=== PATIENT | female | born 1990 | race Two or more races ===

== ENCOUNTER → 2024-07-08 | Outpatient (CLI) | payer MEDICAID, SELFPAY ==
--- NOTE | 2024-07-08 08:45 | XR_ITS ---
Examination: Breast ultrasound, unilateral, right complete Date and time of exam: July 08, 2024 0918 hours INDICATIONS: Palpable lump in the right axilla with right axillary breast pain 20 years Technique: Real-time damon scale ultrasonographic imaging performed right breast including all 4 quadrants as well as nipple retroareolar and axillary region. Findings: No cystic or solid breast mass Right axillary mass with abnormal internal architecture, measuring 18 x 19 x 18 mm IMPRESSION: BI-RADS Category 4: Suspicious for malignancy Suspicious axillary mass, biopsy is needed to exclude carcinoma, this mass is amenable to ultrasound-guided axillary biopsy for diagnosis
--- NOTE | 2024-07-08 09:15 | XR_ITS ---
Examination: Diagnostic digital mammography, unilateral, right Computer aided detection 3-D breast Tomosynthesis, unilateral Date and time of exam: July 08, 2024 at 0931 hours INDICATIONS: Right breast discharge 6 months, lump in the right breast 15 years, Technique: Nonmagnified MLO, CC views of the right breast have been obtained, reconstructed from 3-D Tomosynthesis images. R2 computer aided detection program utilized for evaluation of suspicious masses and/or abnormal calcifications. 3-D Tomosynthesis images obtained. Findings: Scattered areas of fibroglandular density Please see the right breast sonogram today indicating axillary mass Suspicious for architectural distortion upper right breast MLO view, 6.6 cm from the nipple Impression: BI-RADS category 0: Incomplete: Need additional imaging evaluation Please see the right breast sonogram report today indicating suspicious axillary mass Recommend follow-up spot tomographic views upper outer quadrant right breast to exclude early architectural distortion upper right breast on the MLO view
== END | disposition home or self-care (01) ==
PROVIDERS: PCP Physician Assistant; Referring Provider Physician Assistant; Visit Provider Physician Assistant
DX: R92.8 Other abnormal and inconclusive findings on diagnostic imaging of breast (principal); N63.31 Unspecified lump in axillary tail of the right breast
CPT/HCPCS: 76641; 77061; 77065; G0279

== ENCOUNTER → 2024-09-23 | Outpatient (CLI) | payer MEDICAID, SELFPAY ==
[2024-09-20 10:57] LABS: Basophils % (Auto) 0 % (0-2.5); Eosinophils # (Auto) 0.2 Thou/mm3 (0.0-0.5); Eosinophils % (Auto) 2 % (0-10); Immature Granulocytes % (Auto) 0 % (0-0); Immature Granulocytes Auto 0.01 Thou/mm3 (0.00-0.00); Lymphocytes # (Auto) 2.7 Thou/mm3 (1.0-4.8); Lymphocytes % (Auto) 29 % (10-50); Mean Corpuscular HGB Conc 28.1 g/dl (31.0-37.0); Mean Corpuscular Volume 61 fL (80-100); Monocytes # (Auto) 0.6 Thou/mm3 (0.0-0.8); Monocytes % (Auto) 7 % (0-12); Neutrophils # (Auto) 5.7 Thou/mm3 (1.8-7.7); Neutrophils % (Auto) 62 % (37-80); Nucleated Red Blood Cell % 0 /100 WBC (0); Platelet Count 461 Thou/mm3 (140-440); RDW Standard Deviation 40.8 fL (36.4-46.3); Red Blood Count 5.12 Miln/mm3 (4.00-5.20); White Blood Count 9.1 Thou/mm3 (3.6-11.0)
[2024-09-20 11:03] LABS: Partial Thromboplastin Time 28.8 Seconds (22.0-36.0); Prothrombin Time 11.1 Seconds (9.0-12.2)
[2024-09-20 11:04] LABS: Hemoglobin 8.7 g/dL (12.0-16.0)
[2024-09-20 11:05] LABS: HCG,Qualitative Serum Negative
--- NOTE | 2024-09-23 08:30 | XR_ITS ---
Examinations: Ultrasound-guided percutaneous right axillary biopsy Right axillary sonography limited Exam date and time: September 23, 2024 0913 hours INDICATIONS: Abnormal right axillary mass 18 x 19 x 18 mm on right axillary sonogram July 08, 2024. Informed consent provided. Technique: A timeout was completed verifying correct patient, procedure, site, positioning, and special equipment if applicable Informed consent provided. The patient was placed in a supine position for the axillary mass biopsy. Sonographic images of the axilla were performed for localization of the suspicious nodule The patient's breast was prepped and draped in sterile fashion. Maximum sterile barrier technique, hand hygiene, ultrasound sterile technique 1% lidocaine utilized for local anesthesia Utilizing ultrasonographic guidance, 8 core biopsies were obtained of the suspicious nodule utilizing an 18-gauge BioPince needle. The specimens appears satisfactory. The patient tolerated the procedure well and there were no complications. Impression: Successful ultrasound-guided percutaneous biopsy right axillary mass
== END | disposition home or self-care (01) ==
LOC: SIRX 08:19
PROVIDERS: Radiology Diagnostic Radiology; PCP Nurse Practitioner; Referring Provider Nurse Practitioner; Visit Provider Nurse Practitioner
DX: N63.31 Unspecified lump in axillary tail of the right breast (principal); Z01.812 Encounter for preprocedural laboratory examination
CPT/HCPCS: 19083; 36415; 84703; 85025; 85610; 85730

== ENCOUNTER 2024-12-30 05:50 | Day surgery (SDC) | payer MEDICAID, SELFPAY ==
--- NOTE | 2024-12-27 07:00 | EKG_ITS ---
[facility] Test Date: 2024-12-27 Pat Name: BLOSSOM BECK Department: Room: - Gender: Female Tool Designer: JAYJAY : 1990 Requested By: Mario Doyle Order Number: [id number] Reading MD: Mario Doyle Measurements Intervals [place] Rate: 84 P: 52 NH: 165 QRS: -15 QRSD: 77 T: 19 QT: 352 QTc: 416 Interpretive Statements SINUS RHYTHM POSSIBLE ANTERIOR MYOCARDIAL INFARCTION , PROBABLY OLD [30 ms Q WAVE IN V3/V4, OR R < 0.2 mV IN V4] No previous ECG available for comparison /store/S0/[id number]/ecg/[id number].pdf
[2024-12-27 07:33] VITALS: BMI 35.4
[2024-12-27 08:08] LABS: Collection Type, Urine Clean Catch
[2024-12-27 08:54] LABS: Basophils # (Auto) 0.1 Thou/mm3 (0.0-0.2); Basophils % (Auto) 1 % (0-2.5); Eosinophils # (Auto) 0.2 Thou/mm3 (0.0-0.5); Eosinophils % (Auto) 2 % (0-10); Hematocrit 31.4 % (36.0-46.0); Immature Granulocytes Auto 0.03 Thou/mm3 (0.00-0.00); Lymphocytes # (Auto) 2.8 Thou/mm3 (1.0-4.8); Lymphocytes % (Auto) 27 % (10-50); Mean Corpuscular HGB Conc 27.1 g/dl (31.0-37.0); Mean Corpuscular Hemoglobin 16.6 pg (25.0-35.0); Mean Corpuscular Volume 61 fL (80-100); Monocytes # (Auto) 0.7 Thou/mm3 (0.0-0.8); Monocytes % (Auto) 7 % (0-12); Neutrophils # (Auto) 6.5 Thou/mm3 (1.8-7.7); Neutrophils % (Auto) 63 % (37-80); Nucleated Red Blood Cell # 0.00 Thou/mm3 (0.00-0.00); Nucleated Red Blood Cell % 0 /100 WBC (0); Platelet Count 415 Thou/mm3 (140-440); RDW Standard Deviation 43.3 fL (36.4-46.3); Red Blood Count 5.12 Miln/mm3 (4.00-5.20); White Blood Count 10.3 Thou/mm3 (3.6-11.0)
[2024-12-27 09:07] LABS: Bacteria,Urine Rare; Bilirubin,Urine Negative (Negative); Blood,Urine Negative (Negative); Clarity,Urine Clear (Clear/Hazy); Color,Urine Yellow (Lt Yel-Yel); Glucose, Urine Negative (Negative); Ketones,Urine Negative (Negative); Leukocyte Esterase,Urine Negative (Negative); Nitrite,Urine Negative (Negative); PH,Urine 6.0 (5.0-7.0); Protein,Urine Trace (Neg - Trace); RBC,Urine 3 /hpf (0-3); Specific Gravity,Urine 1.030 (1.001-1.035); Squamous Epithelial Cell,Urine 15 /hpf (0-5); Urobilinogen,Urine Negative mg/dL (0.0-1.0); WBC,Urine 2 /hpf (0-5)
[2024-12-27 09:15] LABS: Partial Thromboplastin Time 26.5 Seconds (22.0-36.0)
[2024-12-27 09:23] LABS: Alanine Aminotransferase 22 U/L (10-49); Albumin, Serum 4.5 gm/dL (3.5-5.0); Albumin/Globulin Ratio 1.5 (1.2-2.2); Alkaline Phosphatase 72 U/L (46-116); Anion Gap 9 (7-16); Aspartate Amino Transferase 22 U/L (0-34); BUN/Creatinine Ratio 15 Ratio (12-20); Bilirubin,Total 0.5 mg/dL (0.3-1.2); Blood Urea Nitrogen 12 mg/dL (9-23); Calcium 9.1 mg/dL (8.3-10.6); Calcium (Corrected) 9.1 mg/dL (8.5-10.1); Carbon Dioxide 26.2 mMol/L (20.0-31.0); Chloride 104 mMol/L (98-107); Creatinine (Component) 0.8 mg/dL (0.6-1.3); Estimated Creatinine Clearance 111.7 mL/min (>60); Globulin 3.0 gm/dL (2.3-3.5); Glucose 114 mg/dL (74-106); Osmolality,Calculated 278 (275-295); Potassium 4.2 mMol/L (3.4-5.1); Sodium 139 mMol/L (136-145); Total Protein 7.5 gm/dL (5.7-8.2); eGFR > 60 See Note
[2024-12-27 11:32] LABS: Hemoglobin 8.4 g/dL (12.0-16.0)
[2024-12-27 18:04] LABS: Path Review Blood Smear Sent to Pathologist
[2024-12-30] VITALS (12 sets, daily range): BP systolic 116–137; BP diastolic 61–98; PULSE 82–128; RESP 15–20; TEMP 36.3–36.9; O2SAT 97–100; BMI 34.7
[2024-12-30] MEDS: RINGERS LACTATED 1000 ML 1,000 ML 60 ML IV (06:37)
--- NOTE | 2024-12-30 07:24 | SUR.PREOP ---
Patient expressed gratitude for prayer before their procedure.
--- NOTE | 2024-12-30 09:16 | ESOP_ITS ---
Date of Procedure 12/30/24 Pre Op Diagnosis Cholecystitis cholelithiasis Post Op Diagnosis Same with adhesions Procedure Laparoscopic cholecystectomy and laparoscopic lysis of adhesions on December 30, 2024 Findings This patient had large stones in the gallbladder and adhesions to the bowel and the saba hepatis. This required lysis of adhesions. Procedure Description In the preop area the procedure was discussed with the patient including risks benefits and alternatives. The risks include possible laparotomy, bleeding, infection bile duct injury and bile leak. Patient may require ERCP for retained stone or a bile leak. The anesthesia risks are to be explained to the patient by the anesthesiologist. Informed consent was obtained. The patient was positioned supine on the operating table and general anesthesia was administered in a satisfactory manner by the anesthesiologist. A timeout procedure was carried out. The patient is positioned in the reverse Trendelenburg position with the right side up. Orogastric tube is introduced into the stomach to decompress the stomach. Prophylactic antibiotics were given in timely manner. Antiembolism measures were taken. The abdomen chest and groin regions were prepped and draped in usual manner. A supraumbilical vertical incision was made and deepened through the layers of abdominal wall and open laparoscopic procedure is carried out. The balloon catheter was introduced and pneumoperitoneum is achieved. A 30? scope was used. Under direct vision right subxiphoid, midclavicular and anterior axillary line trochars were introduced. The gallbladder is then lifted up and a laparoscopic lysis of adhesions was carried out. The gallbladder is freed from the adhesions and the saba hepatis is exposed. The triangle of Calot is gently dissected and the artery to cystic duct is divided with harmonic ultrasonic zuleima. There is a significant amount of scar chronic scar tissue in the saba hepatis that made the dissection and procedures much slower. The posterior view of safety was achieved. The cystic artery and cystic duct are identified individually and they were ligated close to the gallbladder with hemoclips. There was an accessory cystic artery as well as multiple branches of the cystic artery proper. They were all individually controlled and divided. The cystic artery and the cystic duct are divided between the hemoclips close to the gallbladder. Care was taken to avoid tenting of the common duct. There is a significant length of cystic duct stump towards the common bile duct. The gallbladder is dissected and lifted from the liver bed using harmonic ultrasonic zuleima. The gallbladder bed hemostasis is achieved. The gallbladder is retrieved out of the peritoneal cavity in a specimen bag. The balloon cannula is reintroduced and pneumoperitoneum is reestablished. The peritoneal cavity is thoroughly irrigated with sterile saline solution and hemostasis again ascertained. All the cannulas are removed under direct vision there is no bleeding from the cannula sites. The linea alba repair is carried out with the 0 Vicryl continuous suture. The subcutaneous tissues approximated by a 3-0 chromic and skin by 4-0 monocril subcuticular stitch. For the rest of the trocar site incisions are closed in 2 layers with a 3-0 chromic and 4-0 monocril subcuticular stitch. Steri-Strips are applied. Sterile dressings are applied. Complications none. Patient is transferred to the recovery room in a satisfactory condition. Anesthesia GETA Drains None. Implants None. Pathology / specimen Other (Gallbladder with contents) Estimated Blood Loss 5 Condition Stable Disposition PACU Surgeon Mario Doyle MD Surgical Staff Operation Date: 12/30/24 07:30 Case Staff Anesthesiologist: Jameson Rose RNsecretary receptionist: Vi Renee RN commercial front load operator Verenice research food technologist [employer] surgical technology student
--- NOTE | 2024-12-30 09:25 | SUR.PHASEI ---
0925: Pt. AAOx4, vitals stable, breathing unlabored, no complaint of pain or nausea, x4 dressing to ABD CDI, no active bleed noted, report received from MD Rose and Shantel GRAYSON.
[2024-12-30] MEDS: KETOROLAC INJ 30 MG/ML VIAL IVP (09:31)
[2024-12-30] MEDS: fentaNYL CIT INJ 50 mCg/ML AMP 2ML IVP ×2 (09:40→09:49)
[2024-12-30] MEDS: HYDROmorphone INJ 2 MG/ML VIAL 0.5 MG IVP (10:04)
[2024-12-30] MEDS: METOCLOPRAMIDE INJ 5 MG/ML VIAL 2 ML 10 MG IVP (10:04)
[2024-12-30] MEDS: ONDANSETRON INJ 2 MG/ML INJ 2 ML 4 MG IVP (10:14)
--- NOTE | 2024-12-30 11:06 | SUR.PHASEII ---
Pt. feeling nauseous, waiting for pharmacy to bring up Phenergan to admin to pt. and send her home afterwards. Zofran and Reglan already administered. Educated pt. and her that nausea is normal to experience after anesthesia, both verbalized understanding.
[2024-12-30] MEDS: PROMETHAZINE INJ 12.5 MG in SODIUM CHLORIDE 0.9% 50 ML 2.5 MG IV (11:16)
--- NOTE | 2024-12-30 11:50 | SUR.PHASEII ---
1150: Pt. AAOx4, vitals stable, breathing unlabored, no complaint of pain, complaint of nausea, however pt. stated it is better, x4 dressing to ABD CDI, no active bleed noted, pt. tolerated sips of water well, pt. ambulated to wheelchair with steady gait and no assist, no complications. Gave discharge instructions to the pt. and her ride using assembler wire mesh gate, both verbalized understanding and had no further questions. Pt. left with all personal belongings.
== END 2024-12-30 11:50 | disposition home or self-care (01) ==
PROVIDERS: PCP Physician Assistant; Referring Provider Specialist; Visit Provider Specialist
PROC: 0FT44ZZ Resection of Gallbladder, Percutaneous Endoscopic Approach (ICD-10-PCS; CPT 47562; principal; 2024-12-30 07:30)
DX: K80.10 Calculus of gallbladder with chronic cholecystitis without obstruction (principal); K66.0 Peritoneal adhesions (postprocedural) (postinfection); Z01.810 Encounter for preprocedural cardiovascular examination
CPT/HCPCS: 47562; 36415; 80053; 81001; 85025; 85730; 86850; 86900; 86901; 93005; A4217; A4649; J0131; J0694; J1100; J1171; J1885; J2371; J2405; J2550; J2704; J2710; J2765; J3010; J3490; J7120; A9270; J1596